=== PATIENT | female | born 1960 | race Caucasian/White ===

== ENCOUNTER 2020-10-21 10:07 | Observation (INO) | payer BC, SELFPAY ==
[2020-10-21] VITALS (10 sets, daily range): BP systolic 149–183; BP diastolic 76–97; PULSE 74–102; RESP 17–20; TEMP 36.6–37.3; O2SAT 92–98; BMI 34.3; BMI 37.5
--- NOTE | 2020-10-21 10:18 | XR_ITS ---
PROCEDURE: XR ANKLE LT 2V CLINICAL INDICATION: fall Posttraumatic pain COMPARISON: CR XR TIBIA FIBULA LT 2V from 10/21/2020 FINDINGS: There is an oblique fracture of the distal shaft of the tibia. The fracture is 8.8 cm proximal to the distal surface of the tibia. There is 9 mm lateral displacement of the distal fracture fragment and mild dorsal angulation of the distal fracture fragment. There is also an oblique fracture of the distal fibula with mild dorsal angulation and dorsal displacement of the distal fracture fragment. The proximal mid aspect of the tibia and fibula have an unremarkable appearance. Small calcific density is present at the tibial tuberosity and may be due to an ununited ossification center IMPRESSION: Distal tib fib fracture as described above Dictated by: Michael Rao MD 10/21/2020 12:43 Michael Rao MD in [place] 10/21/2020 12:43
[2020-10-21 11:00] LABS: Basophils # 0.1 K/mm3 (0-0.2); Basophils % 1.2 % (0.1-2.0); Eosinophils # 0.3 K/mm3 (0.0-0.4); Hematocrit 45.4 % (37.0-47.0); Hemoglobin 15.7 g/dL (12.2-16.2); Lymphocytes # 2.1 K/mm3 (0.7-4.5); Lymphocytes % 28.8 % (10-50); Mean Corpuscular HGB Conc 34.6 g/dL (31.8-35.4); Mean Corpuscular Hemoglobin 30.6 pg (27.0-31.2); Mean Corpuscular Volume 88.3 fl (81-99); Mean Platelet Volume 9.1 fl (7.4-10.4); Monocytes # 0.5 K/mm3 (0.1-1.0); Monocytes % 6.3 % (1.7-9.3); Neutrophils # 4.3 K/mm3 (1.8-7.8); Neutrophils % 59.7 % (37.0-80.0); Platelet Count 199 K/mm3 (142-424); Red Blood Count 5.14 M/mm3 (4.20-5.40); Red Cell Distribution Width 13.6 % (11.5-17.5); White Blood Count 7.2 K/mm3 (4.8-10.8)
[2020-10-21 11:02] LABS: Chloride 102 mmol/L (98-107)
[2020-10-21 11:03] LABS: Potassium 4.1 mmoL/L (3.5-5.1); Sodium 137 mmol/L (136-145)
[2020-10-21 11:05] LABS: Alanine Aminotransferase 60 U/L (12-78); Albumin Level 4.2 g/dl (3.5-5.0); Alkaline Phosphatase 171 U/L (38-126); Anion Gap 15.1 mEq/L (5-15); Aspartate Amino Transferase 83 U/L (14-36); Bilirubin,Total 0.6 mg/dl (0.2-1.3); Blood Urea Nitrogen 24 mg/dl (7-17); Calcium 9.6 mg/dl (8.4-10.2); Carbon Dioxide 24 mmol/L (22.0-30.0); Creatinine Clearance Estimated 67 mL/min (50-200); Estimated Glomerular Filt Rate 42 ml/min (>60); GFR (African American) 51 ML/MIN (>60); Globulin 4.1 g/dL (1.3-3.2); Glucose 231 mg/dl (74-100); Total Protein,Serum 8.3 g/dl (6.3-8.2)
--- NOTE | 2020-10-21 11:06 | HMH.EDGENADL ---
ED Disposition Clinical Impression: Fracture tibia/fibula Qualifiers: Encounter type: initial encounter Fracture type: closed Laterality: left Qualified Code(s): S82.202A - Unspecified fracture of shaft of left tibia, initial encounter for closed fracture Disposition: Admitted as Observation Condition on Discharge: Fair - Critical Care Critical Care Time: No Attestation: On 10/21/20, the high probability of a clinically significant, sudden or life threatening deterioration of the following system(s) required my full and direct attention, intervention and personal management. The time I documented below is in addition to time spent performing reported procedures but includes the following listed in this critical care notation. Medical Decision Making - Jan Inquiry Pt receiving controlled substance: Yes Jan was queried for this patient: No Reason not queried -: Emergent pt cond-no time Risks and benefits of using a controlled substance: were not discussed with pt by me Vital Signs: 10/21/20 10:08 10/21/20 10:55 10/21/20 11:32 Temperature 98.0 F Temperature Source Oral Pulse Rate [Left Radial] 89 74 87 Respiratory Rate 18 Blood Pressure [Right Arm] 168/87 H 171/94 H 183/84 H Blood Pressure Mean [Right Arm] 114 119 117 Blood Pressure Source [Right Arm] Automatic Cuff Automatic Cuff Automatic Cuff Blood Pressure Position [Right Arm] Sitting Sitting Sitting 02 Sat by Pulse Oximetry 98 97 97 Oxygen Delivery Method Room Air Room Air Room Air 10/21/20 12:08 Temperature Temperature Source Pulse Rate [Left Radial] 77 Respiratory Rate Blood Pressure [Right Arm] 172/94 H Blood Pressure Mean [Right Arm] 120 Blood Pressure Source [Right Arm] Automatic Cuff Blood Pressure Position [Right Arm] Sitting 02 Sat by Pulse Oximetry 92 L Oxygen Delivery Method Room Air - Lab Data Lab Results 10/21/20 10:27: WBC 7.2, RBC 5.14, Hgb 15.7, Hct 45.4, MCV 88.3, MCH 30.6, MCHC 34.6, RDW 13.6, Plt Count 199, MPV 9.1, Neut % (Auto) 59.7, Lymph % (Auto) 28.8, [place] % (Auto) 6.3, Eos % (Auto) 4.0, Baso % (Auto) 1.2, Neut # (Auto) 4.3, Lymph # (Auto) 2.1, [place] # (Auto) 0.5, Eos # (Auto) 0.3, Baso # (Auto) 0.1 10/21/20 10:27: Sodium 137, Potassium 4.1, Chloride 102, Carbon Dioxide 24, Anion Gap 15.1 H, BUN 24 H, Creatinine 1.30 H, Estimated Creat Clear 67, Estimated GFR 42 L, Est GFR ( Amer) 51 L, Glucose 231 H, Calcium 9.6, Total Bilirubin 0.6, AST 83 H, ALT 60, Alkaline Phosphatase 171 H, Total Protein 8.3 H, Albumin 4.2, Globulin 4.1 H, Albumin/Globulin Ratio 1.0 L Result diagrams: 10/21/20 10:27 10/21/20 10:27 Orders (Tests/Meds): ED MEDICATIONS Discontinued Medications Generic Name Dose Route Start Last Admin Trade Name Freq PRN Reason Stop Dose Admin Hydromorphone HCl 1 mg 10/21/20 11:16 10/21/20 11:43 Hydromorphone 2mg/Ml Syringe IV 10/21/20 11:17 1 mg ONCE ONE Administration Ondansetron HCl 4 mg 10/21/20 11:16 10/21/20 11:44 Ondansetron 4mg/2ml Vial IV 10/21/20 11:17 4 mg ONCE ONE Administration ORDERS Category Date Time Status Consult to Orthopedic Surgery [CONS] Stat Cons 10/21/20 11:17 Ordered Ankle XR - Left 2 Views [XR ankle LT 2V] Stat Exams 10/21/20 10:18 Taken XR tibia fibula LT 2V Stat Exams 10/21/20 10:18 Taken Covid-19 Nasal PCR ([place]) Routine Lab 10/21/20 11:50 Received - Radiology Data #1 Image(s): Tib/Fib Image Reviewed: Yes I reviewed the patient's radiology image fracture left distal tibia and fibular shafts - Physician Consults Physician Consulted: Ok Time: 11:47 Reason -: Orthopedic Eval/Care Comment/Response: Long-leg posterior splint. NPO. Admit to his service. General Adult HPI - General Chief complaint: Fall Stated complaint: AO [id number] left leg pain Time Seen by Provider: 10/21/20 11:06 Mode of Arrival: Wheelchair Limitations: No Limitations Description of Symptoms (Recalled from ER Triage Doc. by RN): c/
--- NOTE | 2020-10-21 12:28 | PC.NURSE ---
Ileana orthoglassed with assistance of
--- NOTE | 2020-10-21 13:06 | CT_ITS ---
PROCEDURE: CT ANKLE LT WO CON Including 3D volume rendering with shading Referring Doctor: Brady Euceda Patient Age:60Y CLINICAL HISTORY: injury but fracture fractures distal fibula and distal tibia COMPARISON: CR XR TIBIA FIBULA LT 2V from 10/21/2020 CR XR ANKLE LT 2V from 10/21/2020 XA XR TIBIA FIBULA LT 2V from 10/22/2020 TECHNIQUE: No IV contrast Helical axial images obtained with sagittal and coronal reformats. 7 6 CPT Subsequent 3D volume rendering with shading performed on CT workstation by ct scan special procedures technologist CT scans at the facility use one or more dose reduction, viz: automated exposure control, ma/kV adjustment per patient size (including targeted exams where dose is matched to indication, i.e. head), or iterative reconstruction technique. FINDINGS: . Displaced fracture shaft of left tibia and displaced fracture of the lateral malleus. Displaced fracture distal left tibial shaft: This slightly comminuted fracture of the distal tibial shaft 8 cm above the ankle mortise. There up to 1 cm lateral displacement of the distal fracture fragment. Mild angulation with slight medial and posterior tilt of distal fracture fragment, yielding apex of fracture directed anterior and lateral There is also a nondisplaced vertically oriented fracture of the distal most tibia-with articular extension to the ankle joint: This can be seen as a seen is a transverse fracture line on axial image 70, passing through the articular surface of the distal tibia at ankle joint-nondisplaced here. This fracture line then extends superiorly in a vertical fashion through upward exiting the cortex of the distal tibia here at the posterior tibial metaphysis-basically this becomes a posterior malleolar fracture fragment. . Fractures of the distal fibula: Long oblique fracture begins at the distal fibular shaft posteriorly and continues lateral malleolus. Comminuted of fragment seen both posterior and anterior. As well as some questionable fragments at the fibular talar articulation interosseous region likely arising from lateral cortical margin the distal tibia at the interosseous region.. The dome of the talus intact. Subtalar region unremarkable. Medial malleolus intact. There is diffuse soft tissue swelling about the ankle extending the foot as well as edema throughout inferior aspect of the lower leg. IMPRESSION: . Displaced fracture shaft of left tibia, intra-articular fracture distal tibia, displaced fracture distal fibula: 1..Acute, displaced slightly comminuted fracture of the Distal Tibial Shaft Mild angulation at fracture with near 10 mm lateral displacement of the distal tibial fracture fragment.. 2..Acute, vertically oriented fracture Distal Most Tibia, with Intra-articular Extension. Essentially nondisplaced posterior malleolar fragment. 3..Acute mild displaced fracture of the Distal Fibula . This extends from posterior cortex of distal shaft to the anterior aspect of the lateral malleolus. Mildly comminuted 4.. Also note cortical fragmentation distal most tibia anteriorly at interosseous region-where it articulates with the distal tibia, just above the ankle mortise. This feature best seen on axial images of this region. 5-. Diffuse soft tissue swelling about ankle-extending into the lower leg, as well as distally towards the foot Dictated by: Sammy Mojica MD 10/22/2020 17:58 Sammy Mojica MD in [place] 10/22/2020 17:58
--- NOTE | 2020-10-21 13:31 | PC.NURSE ---
per lab pt covid swab has not been placed on the analyzer yet, states they are waiting on the current run to get finished they will have to reboot the machine and then will place pt swab on.
--- NOTE | 2020-10-21 13:32 | HMH.ORTHHP ---
*Admission Date: 10/21/20 *Reason for consult:: 1. Fracture shaft tibia, left 2. Lateral malleolus fracture, left ankle *History of present illness: Patient is a 60-year-old female presented to the ER for management of left leg injury. She states she slipped and fell down the steps this morning around 9 AM. She says her left leg went underneath her and she felt immediate pain and noticed deformity. Following the injury she was brought to the [facility] ER where evaluation including x-rays showed a closed, displaced fracture shaft of left tibia and displaced fracture of the lateral malleus.? She was placed in a posterior splint and is being admitted for further management.? She says her pain has significantly improved following the splinting and IV Dilaudid. The pain is worse with any attempted movements of the left lower extremity.? There is no history of any distal tingling or numbness.? She is not complaining of pain anywhere else.? She says she noticed couple of superficial abrasions over the leg without active bleeding. She reports no other injuries. She denies injury to head, neck, chest, back, abdomen or pelvis. No history of any previous knee, leg or ankle problems, significant injury or surgery. 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 She is normally mobile and independent. Her medical history includes hypertension, hyperlipidemia and hypothyroidism. She is not a known diabetic. She is ex-smoker, quit smoking about 20 years ago. [facility] History I have reviewed the patient's past medical history: Yes Medical History: Reports:: Hyperlipidemia, Hypertension Denies:: Diabetes Mellitus Type 1, Diabetes Mellitus Type 2 *Have you ever received a pneumonia vaccine?: No *Have you received a flu vaccine this season?: No Other Medical History: Reports: Hypothyroidism, Osteoporosis - *Social History Smoking Status: Former smoker Substance Use Type: denies use *Occupational Status:: employed *Travel in the last 8 weeks: None Family Hx:: Non-contributory Review of Systems - Review of Systems Review of systems:: pertinent systems reviewed and negative unless documented below - Constitutional Denies body ache(s), Denies chills, Denies fever(s) - Eyes Denies change in vision - ENT Denies abnormal hearing, Denies difficulty swallowing, Denies nasal congestion - *Cardiovascular Denies chest pain, Denies shortness of breath - *Respiratory Denies chest congestion, Denies cough, Denies wheezing - *Gastrointestinal Denies abdominal pain, Denies change in bowel habits, Denies vomiting - *Musculoskeletal Denies back pain, Denies neck pain, Denies numbness, Denies radiating pain into limb, Denies tingling Comments: As per HPI - *Neurologic Denies abnormal movements, Denies seizure-like activity, Denies dizziness, Denies numbness, Denies tingling/numbness/burning sensations, Denies weakness - Endocrine Denies cold intolerance, Denies heat intolerance - Hematologic/Lymphatic Denies easy bleeding, Denies easy bruising - Allergic/Immunologic Denies GI upset with certain foods, Denies hives, Denies wheezing Meds Home Medications Medication Instructions Recorded Confirmed Type Aspirin [Lo-Dose Aspirin EC] 81 mg PO DAILY 10/21/20 10/21/20 History Benazepril HCl 5 mg PO DAILY 10/21/20 10/21/20 History Cetirizine HCl 10 mg PO DAILY 10/21/20 10/21/20 History Levothyroxine Sodium 175 mcg PO DAILY 10/21/20 10/21/20 History [Levothyroxine] Meloxicam 7.5 mg pe PO DAILY 10/21/20 10/21/20 History Metoprolol Tartrate [Lopressor 100 mg PO DAILY 10/21/20 10/21/20 History 100mg Tablet] Omeprazole [Omeprazole 20mg Tab] 20 mg PO DAILY 10/21/20 10/21/20 History Simvastatin 40 mg PO DAILY 10/21/20 10/21/20 History Triamterene/Hydrochlorothiazid 1 tab PO DAILY 10/21/20 10/21/20 History [Triamterene-Hctz 37.5-25 mg Tb] Vit D3-Vit K/Berberine/Hops 1 tab PO DAILY 10/21/20 10/21/20 History [Ostera Tablet] estradioL [Estradiol]
--- NOTE | 2020-10-21 13:37 | PC.NURSE ---
pt to rad
--- NOTE | 2020-10-21 14:00 | PC.NURSE ---
Pt returned from rad.
--- NOTE | 2020-10-21 14:06 | XR_ITS ---
PROCEDURE: XR CHEST PORTABLE Referring Doctor: Brady Euceda Patient Age:60Y CLINICAL HISTORY: Preop-history of hypertension COMPARISON: No exams were available for comparison FINDINGS: AP portable upright CXR Lungs well expanded and clear with no active disease. The cardiomediastinal silhouette and pulmonary vascularity are within normal limits. The lungs are clear without infiltrates, suspicious nodules, or pleural effusions.. No focal consolidation. Today's slightly less than optimal inspiration along with overlying breast accentuate markings at the lung bases but no significant active disease No acute bony abnormalities. IMPRESSION: . Lungs appear clear with nothing definitely acute. Dictated by: Sammy Mojica MD 10/22/2020 17:25 Sammy Mojica MD in [place] 10/22/2020 17:25
--- NOTE | 2020-10-21 14:29 | PC.NURSE ---
per lab pt covid swab has 90 mins left on the analyzer
--- NOTE | 2020-10-21 16:00 | PC.NURSE ---
Pt eating at this time.
--- NOTE | 2020-10-21 16:10 | PC.NURSE ---
REPORT RECEIVED FROM Chintan LIZAMA RN
--- NOTE | 2020-10-21 16:14 | PC.NURSE ---
report given to mara mirelesrn
--- NOTE | 2020-10-21 16:18 | ECG_ITS ---
APPROVED REPORT Exam: Resting ECG HR:84 bpm ECG Measurements Heart Rate 84 AXES KS 162 P 32 QRSd 80 QRS 25 QT 360 T 46 QTc 425 Conclusion Normal sinus rhythm Poor R wave progression Abnormal ECG Electronically signed by : Zen Franklin, 10/21/2020 17:23:56
--- NOTE | 2020-10-21 16:30 | PC.NURSE ---
PT ASSESSED AT THIS TIME. BILATERAL LUNG SOUNDS CLEAR. NO EDEMA NOTED. L LEG IN LONG LEG SPLINT. CAP REFILL OF L TOES ARE LESS THAN THREE SECS. PT STATES PAIN IN L LEG 10/10 ON VERBAL SCALE. DENIES ANY FURTHER NEEDS AT THIS TIME WILL CONTINUE TO OBSERVE.
--- NOTE | 2020-10-21 17:29 | PC.NURSE ---
RN CALLED DR. SANTANA. EXPLAINED PT PAIN 10/10 ON VERBAL SCALE. LAST GIVEN MORPHINE 4 MG @1529. PT STATES DILAUDID HELPED BETTER THAN MORPHINE. DR. SANTANA STATES TO GIVE PT PO NORCO [phone]. RN REPEATED AND VERIFIED.
--- NOTE | 2020-10-21 19:25 | PC.NURSE ---
DR LAWRENCE ON UNIT AT THIS TIME, ASSESSING PATIENT AT THIS TIME, REPORT GIVEN NO NEW ORDERS
--- NOTE | 2020-10-21 20:27 | PC.NURSE ---
DR SANTANA ALSO STATED BOLTON CATHETER MAY BE INSERTED AT THIS TIME D/T TIB/FIB FX AND DIFICULTY REPOSITIONING IN BED D/T PAIN
--- NOTE | 2020-10-21 20:27 | PC.NURSE ---
DR SANTANA WAS CALLED AT THIS TIME, PT TEARFUL AND STATES MORPHINE IS NOT HELPING PT RATING PAIN 10/10 ON PAIN SCALE, NEW ORDERS RECEIVED TO D/C MORPHINE, DILAUDID 1MG IV Q4H PRN AND TORODOL 30MG Q6H PRN PHONE ORDERS REPEATED AND VERIFIED AT THIS TIME
--- NOTE | 2020-10-21 20:50 | PC.NURSE ---
BOLTON CATHETER WAS INSERTED AT THIS TIME. PT TOLERATED PROCEDURE WELL UA COLLECTED AND SENT TO LAB
[2020-10-21 20:54] LABS: Hemoglobin A1C 7.4 % (4.0-6.0)
[2020-10-21 21:32] LABS: Microscopic, Urine URINE MICROSCOPIC (MICROSCOPIC)
[2020-10-21 21:33] LABS: Appearance,Urine CLEAR (Clear); Bilirubin,Urine Negative (Negative); Blood, Urine TRACE-I (Negative); Color,Urine YELLOW (Yellow); Glucose,Urine (UA) Negative (Negative); Ketones,Urine Negative (Negative); Leukocyte Esterase,Urine Negative (Negative); Nitrate,Urine Negative (Negative); Protein,Urine 3+ (Negative); Specific Gravity, Urine >= 1.030 (1.005-1.030); Urobilinogen,Urine 0.2 EU/dl (0.2)
[2020-10-21 21:35] LABS: Coarse Granular Casts,Urine Occasional #/lpf (0); RBC,Urine Occasional #/hpf (0-3)
--- NOTE | 2020-10-21 21:40 | PC.NURSE ---
DR SANTANA ON UNIT AT THIS TIME, REPORT GIVEN, NEW ORDERS RECEIVED FOR VANCOMYCIN BEFORE SURGERY DOSING PER PHARMACY FOR PROPHYLAXIS, CONSULT TO PRIMARY CARE DOCTOR, BLOOD SUGARS AC AND HS, AND HUMALOG SLIDING SCALE INSULIN LOW INTENSITY SCALE, VERBAL ORDER REPEATED AND VERIFIED
--- NOTE | 2020-10-21 21:43 | PC.NURSE ---
SPOKE WITH KRISTEN FROM PHARMACY VANCOMYCIN DOSING, VANCOMYCIN 2G IV X 1 DOSE AT 0700, VANC ORDER WAS REPEATED AT THIS TIME
--- NOTE | 2020-10-21 21:57 | PC.NURSE ---
radiology at bedside at this time completing chest x ray, ice provided to heel foot and leg per dr Euceda request
[2020-10-21 22:17] LABS: POC Glucose,Bedside 194 (70-110)
[2020-10-22] VITALS (17 sets, daily range): BP systolic 128–188; BP diastolic 66–140; PULSE 62–92; RESP 16–18; TEMP 36.6–43; O2SAT 91–98
--- NOTE | 2020-10-22 05:05 | PC.NURSE ---
pt is alert and oriented and able to make needs known, vss, lungs remain clear, heart rate regular, bs x 4, left foot remains casted with ice packs in place, pt has good capillary refill no edema noted, foot remains elevated, pain well controlled with pain medication, rush catheter patent, no distress noted, call light within reach will continue to monitor at this time
[2020-10-22 06:44] LABS: POC Glucose,Bedside 170 (70-110)
--- NOTE | 2020-10-22 07:15 | PC.NURSE ---
2ND IV STARTED AT THIS TIME. X1 STICK IN RAC 20G PT TOLERATED WELL.
--- NOTE | 2020-10-22 07:18 | XR_ITS ---
PROCEDURE: XR TIBIA FIBULA LT 2V CLINICAL INDICATION: IM TIBIA NAILING AND ORIF LATERAL FIBULA COMPARISON: No exams were available for comparison FINDINGS: Fluoroscopy time: 5 minutes and 25 seconds C-arm is utilized for ORIF of comminuted distal tibia and fibular fracture. Long intramedullary austen with stabilizing cortical screws are placed within the tibia and a side plate of the fibula which appears to be in good alignment on the AP view. IMPRESSION: Good alignment status post ORIF distal tib fib fracture Dictated by: Michael Rao MD 10/23/2020 12:35 Michael Rao MD in [place] 10/23/2020 12:35
--- NOTE | 2020-10-22 07:30 | PC.NURSE ---
REPORT RECEIVED FROM Boubacar APARICIO RN
--- NOTE | 2020-10-22 07:34 | PC.NURSE ---
REPORT GIVEN TO Karol LATIF RN
--- NOTE | 2020-10-22 07:40 | PC.NURSE ---
PT TAKEN TO PREOP AT THIS TIME.
--- NOTE | 2020-10-22 08:57 | HMH.ANESCL ---
[facility] Anesthesia Checklist - Patient Identification Patient Identification: Arm Band - Structural Data Admitted From: Inpatient Planned Operative Procedure/s: Left Tibial Nailing, ORIF Left Ankle Consent for Planned Operative Procedure(s) Verified: Yes Verified Documents: Surgical Consent, History and Physical - NPO Status Verified Time NPO: 00:00 - Additional verifications Anesthesia Reactions: No - Airway Assessment C-Spine Mobility Assessed: Yes (mp2) TMJ Mobility Assessed: Yes Dentition: Good Dentition - Neurological Assessment Level of Consciousness: Awake, Alert - Anesthesia Plan Anesthesia Risk discussed: Yes Anesthesia Plan: Verified ASA Class: III Anesthesia Type: MAC w/Spinal [facility] History I have reviewed the patient's past medical history: Yes Medical History: Reports:: Diabetes Mellitus Type 2, Hyperlipidemia, Hypertension, Osteoporosis Denies:: Diabetes Mellitus Type 1, MRSA *Have you ever received a pneumonia vaccine?: No *Have you received a flu vaccine this season?: Yes Other Medical History: Reports: Hypothyroidism, Osteoporosis, Thyroid Disease Anesthesia experience/problems:: nac Other Surgeries: Yes: Cholecystectomy, Hysterectomy-Total, Tubal Ligation Amputation: No Fractures: No - *Social History Last grade of school completed: Some college Smoking Status: Former smoker Alcohol Intake: never Substance Use Type: denies use *Occupational Status:: employed Housing: house Household Members: spouse *Travel in the last 8 weeks: None Family Hx:: Non-contributory
--- NOTE | 2020-10-22 10:23 | SUR.OPER ---
0907-family updated at this time
--- NOTE | 2020-10-22 11:21 | SUR.OPER ---
1117-family updated at this time
--- NOTE | 2020-10-22 13:23 | HMH.ANESI ---
[facility] Anesthesia Record Part I Intake, IV Amount: 1,600 Estimated blood loss (mL): 200 Urine output (mL): 500 Blood Pressure: 128/80 SaO2: 96 Pulse Rate: 74 Respiratory Rate: 16 Temperature: 98 F Patient is:: Drowsy, Stable Stable to PACU at:: 13:20
[2020-10-22 13:57] LABS: POC Glucose,Bedside 122 (70-110)
--- NOTE | 2020-10-22 14:00 | HMH.PHAVTE ---
[facility] Pharmacy VTE Monitoring - Patient Demographics Admission date: 10/22/20 Report Date: 10/22/20 Time: 14:00 Allergies/Adverse Reactions: Patient Allergies No Known Allergies Allergy (Verified 10/21/20 10:30) Height: 1.57 m Weight: 92.986 kg Patient Problems: Current Active Problems Fracture tibia/fibula (Acute) Fracture of tibial shaft, left, closed (Acute) Fracture of ankle, lateral malleolus, left, closed (Acute) Hypertension (Chronic) Hypothyroidism (Chronic) - VTE Risk Labs: VTE Related Lab Results Hgb 15.7 g/dL (12.2-16.2) 10/21/20 10:27 Hct 45.4 % (37.0-47.0) 10/21/20 10:27 Plt Count 199 K/mm3 (142-424) 10/21/20 10:27 BUN 24 mg/dl (7-17) H 10/21/20 10:27 Creatinine 1.30 mg/dl (0.52-1.04) H 10/21/20 10:27 Estimated Creat Clear 67 mL/min (50-200) 10/21/20 10:27 Was VTE Risk Assessment Performed: Yes VTE Score: 3 VTE Risk Level: Low Risk - Prophylaxis Types of VTE Prophylaxis: TEDS Knee High Location of Applied Device: Right Leg, Bilateral Lower Extremeties (JOSÉ ANTONIO HOSE ORDERED)
--- NOTE | 2020-10-22 14:04 | HMH.OPNOTE ---
Date of procedure: 10/22/20 Pre-op Diagnosis:: 1. Closed, comminuted and displaced fracture shaft of tibia and fibula, LEFT leg 2. Closed, comminuted and displaced fracture lateral malleolus, LEFT ankle 3. Closed, nondisplaced posterior malleolus fracture, LEFT ankle Post-op Diagnosis:: Same Procedure performed:: 1. Closed reduction and internal fixation with tibial nailing, LEFT tibia 2. Open reduction internal fixation lateral malleolus fracture, LEFT ankle 3. Percutaneous screw fixation posterior malleolus fracture, LEFT ankle Surgeon:: Brady Euceda MD Pole Setter(s):: Claudia Zaidi CROZER:: Hong Chacon Anesthesia: spinal Estimated blood loss (mL): 200 Clinical Note:: Patient is a 60-year-old female who sustained injury to her left leg and left ankle when she slipped and fell down few steps yesterday. Evaluation in the ER including x-rays and CT scan showed a closed comminuted, unstable fracture shaft of left tibia along with a displaced comminuted fracture of the lateral malleolus and a large nondisplaced posterior malleolus fractures of the left ankle. There is no history of any distal tingling or numbness. There were couple of superficial skin abrasions over the leg without active bleeding. No other injuries were noted. No history of any previous knee, leg or ankle problems, significant injury or surgery. 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 She is normally mobile and independent. Her medical history includes hypertension, hyperlipidemia and hypothyroidism. She is not a known diabetic. She is ex-smoker, quit smoking about 20 years ago. The patient was splinted and admitted for surgical management. Please refer to my H&P note for full details. Operative findings:: A displaced, comminuted, unstable spiral fracture of the shaft of the left tibia at middle and lower third junction. Also there is comminuted, displaced spiral fracture of the lateral malleolus and a nondisplaced large posterior malleolar fracture. The inferior tibiofibular syndesmosis noted to be intact with stable and congruent ankle mortise. The tibia was reduced and fixed in a stable fashion with intramedullary nailing. The lateral malleolus fracture was reduced and chemically and fixed with plate and screws. The posterior malleolar fracture fixed with an anteroposterior cannulated cancellous screw. Moderate soft tissue swelling was noted over the distal third of the leg and around the ankle. Operative note:: Prior to surgery the patient was met in the preoperative holding area and positively identified. A physical examination was performed and documented. The operative site was marked and initialed by me. The consent form was reviewed and signed. Given the fracture pattern, displacement and shortening, I have recommended a closed/open reduction and internal fixation of the tibial shaft fracture as well as open reduction internal fixation of the lateral malleolus fracture. I have discussed details of the closed/open reduction and intramedullary nailing for tibial shaft fracture and plating of the lateral malleolus. Following a detailed discussion she wished to proceed with surgery. I have discussed the details of the proposed surgical procedures, risks and benefits and alternatives. We have outlined where the incisions will be on the skin. Given the small abrasion over the tibial tuberosity area, I am planning a suprapatellar tibial nailing. Risks of surgery discussed include but are not limited to- infection, bleeding, injury to nerves and blood vessels, compartment syndrome, fat embolism, intra-articular knee injury, incisional scar (cosmesis), DVT/PE, malunion, nonunion/delayed union, refracture, knee/ankle stiffness and pain, knee and ankle arthritis, CRPS (complex regional pain syndrome- pain, sensory and temperature changes, swelling and stiffness), painful/prominent hardware, loss of fixation/hardware failure, incomplete relief of pain, incomplete return of function, an
--- NOTE | 2020-10-22 15:04 | HMH.PHAVTE ---
[facility] Pharmacy VTE Monitoring - Patient Demographics Admission date: 10/22/20 Report Date: 10/22/20 Time: 12:00 Allergies/Adverse Reactions: Patient Allergies No Known Allergies Allergy (Verified 10/21/20 10:30) Height: 1.57 m Weight: 92.986 kg Patient Problems: Current Active Problems Fracture tibia/fibula (Acute) Fracture of tibial shaft, left, closed (Acute) Fracture of ankle, lateral malleolus, left, closed (Acute) Hypertension (Chronic) Hypothyroidism (Chronic) - VTE Risk Labs: VTE Related Lab Results Hgb 15.7 g/dL (12.2-16.2) 10/21/20 10:27 Hct 45.4 % (37.0-47.0) 10/21/20 10:27 Plt Count 199 K/mm3 (142-424) 10/21/20 10:27 BUN 24 mg/dl (7-17) H 10/21/20 10:27 Creatinine 1.30 mg/dl (0.52-1.04) H 10/21/20 10:27 Estimated Creat Clear 67 mL/min (50-200) 10/21/20 10:27 Was VTE Risk Assessment Performed: Yes VTE Score: 3 VTE Risk Level: Low Risk - Prophylaxis Types of VTE Prophylaxis: IPCS Thigh High Location of Applied Device: Right Leg, Bilateral Lower Extremeties (ICDS ORDERES)
--- NOTE | 2020-10-22 15:10 | HMH.ANESII ---
[facility] Anesthesia Record Part II Discharge Time: 13:40 Destination: Obstetric PACU nurse assessment reviewed?: Yes Patient Condition:: Good Anesthesia Complications:: None Swallowing reflex intact?: Yes Cyanosis?: No Blood Pressure: 145/70 Pulse Rate: 62 Temperature: 98.3 F Mental Status: Alert & Oriented Pain level:: 0 Nausea and/or vomitting:: None Intake, IV Amount: 0
[2020-10-22 16:25] LABS: POC Glucose,Bedside 160 (70-110)
--- NOTE | 2020-10-22 19:30 | PC.NURSE ---
REPORT GIVEN Carmen LR RN.
[2020-10-22 20:34] LABS: POC Glucose,Bedside 138 (70-110)
--- NOTE | 2020-10-22 21:05 | PC.NURSE ---
O2 2L/NC APPLIED AT THIS TIME, PT DROWSY FROM PAIN MEDICATION. PT USING INCENTIVE SPIROMETER AT THIS TIME. PROPER USE
[2020-10-23] VITALS (8 sets, daily range): BP systolic 127–162; BP diastolic 50–76; PULSE 90–102; RESP 16–18; TEMP 36.9–37.4; O2SAT 95–100
--- NOTE | 2020-10-23 04:40 | PC.NURSE ---
PT HAS RESTED INTERMITTENTLY THIS SHIFT, MEDICATED EVERY 4 HOURS PER EMAR. PT A&O X 4. VSS. ANXIOUS AND TEARFUL AT TIMES, PT UNSURE WHY. REASSURANCE GIVEN. PT OFF O2 AT THIS TIME. LUNGS CTAB. HEART RATE REGULAR. BOWEL SOUNDS ACTIVE X 4 QUADS. BOLTON CATH PATENT, CLEAR YELLOW URINE NOTED. LEFT LEG ELEVATED. DRESSING C/D/I. PT ABLE TO MOVE TOES, STATES LEG FEELS VERY HEAVY. PULSES PALPABLE, WARM TO TOUCH. CAP REFILL LESS THAN 3 SECONDS, NO EDEMA NOTED. POLAR PACK AND ICE PACKS REFILLED AT THIS TIME. CALL LIGHT WITHIN REACH. NO NEEDS AT THIS TIME. WILL CONTINUE TO MONITOR
[2020-10-23 06:38] LABS: POC Glucose,Bedside 147 (70-110)
[2020-10-23 07:03] LABS: Basophils # 0.1 K/mm3 (0-0.2); Basophils % 0.5 % (0.1-2.0); Eosinophils # 0.2 K/mm3 (0.0-0.4); Eosinophils % 2.7 % (0.1-12.0); Hematocrit 34.4 % (37.0-47.0); Hemoglobin 11.5 g/dL (12.2-16.2); Lymphocytes # 1.6 K/mm3 (0.7-4.5); Lymphocytes % 18.6 % (10-50); Mean Corpuscular HGB Conc 33.3 g/dL (31.8-35.4); Mean Corpuscular Hemoglobin 29.3 pg (27.0-31.2); Mean Corpuscular Volume 88.1 fl (81-99); Mean Platelet Volume 8.5 fl (7.4-10.4); Monocytes # 0.6 K/mm3 (0.1-1.0); Neutrophils # 6.3 K/mm3 (1.8-7.8); Neutrophils % 71.1 % (37.0-80.0); Platelet Count 150 K/mm3 (142-424); Red Blood Count 3.91 M/mm3 (4.20-5.40); Red Cell Distribution Width 13.2 % (11.5-17.5); White Blood Count 8.8 K/mm3 (4.8-10.8)
[2020-10-23 07:08] LABS: Chloride 103 mmol/L (98-107); Sodium 136 mmol/L (136-145)
[2020-10-23 07:09] LABS: Potassium 4.3 mmoL/L (3.5-5.1)
[2020-10-23 07:12] LABS: Anion Gap 8.3 mEq/L (5-15); Blood Urea Nitrogen 22 mg/dl (7-17); Carbon Dioxide 29 mmol/L (22.0-30.0); Creatinine Clearance Estimated 59 mL/min (50-200); Estimated Glomerular Filt Rate 36 ml/min (>60); GFR (African American) 43 ML/MIN (>60); Glucose 158 mg/dl (74-100)
[2020-10-23 07:35] LABS: Calcium 8.4 mg/dl (8.4-10.2)
--- NOTE | 2020-10-23 08:00 | PC.NURSE ---
PT ASSESSED AT THIS TIME. BILATERAL LUNG SOUNDS CLEAR. BOWEL SOUNDS HYPOACTIVE X4 QUADS. PT STATES SHE HAS BEEN PASSING SOME GAS. L LEG HAS SURGICAL DRESSING IN PLACE AND IS C/D/I. PT CAP REFILL IN L TOES IS LESS THAN 3 SECS. PT IS ABLE TO BEND KNEE AND WIGGLE TOES ON L FOOT. NO EDEMA NOTED. PAIN IS 7/10 ON VERBAL SCALE AND WILL MEDICATE PER EMAR AT THIS TIME. L LEG ELEVATED ON PILLOWS X4 ICE PACKS, AND POLAR PACK IN PLACE. ICE PACKS REFILLED AT THIS TIME. WILL CONTINUE TO OBSERVE.
--- NOTE | 2020-10-23 08:42 | PC.NURSE ---
[facility] AT BEDSIDE AT THIS TIME.
--- NOTE | 2020-10-23 08:49 | PC.NURSE ---
[facility] DAY TO NURSES STATION AT THIS TIME STATING THAT PT IS CRYING IN PAIN. RN CALLED DR. SANTANA AT THIS TIME. REPORT GIVEN. STATES TO CHANGE NORCO 5/325 TO PERCOCET 5/325MG Q4H PRN PO. STATES TO GIVE PT 0.5MG OF DILAUDID IV PRN Q4H PRN R/T MAKING PT DROWSY AND NEEDS PHYSICAL THERAPY/ OT EVALUATION. ORDERS REPEATED AND VERIFIED.
--- NOTE | 2020-10-23 09:01 | PC.NURSE ---
[facility] ADMINISTERED PAIN MEDICATION DR. SANTANA ORDERED.
--- NOTE | 2020-10-23 09:30 | PC.NURSE ---
PT AMBULATED TO CHAIR AT THIS TIME WITH ROLLING WALKER AND X1 ASSIST. PT TOLERATED WELL. L LEG ELEVATED AND ICED.
--- NOTE | 2020-10-23 09:45 | PC.NURSE ---
INDWELLING CATHETER REMOVED AT THIS TIME. PT TOLERATED WELL. 400 ML OF CLEAR URINE NOTED IN BAG.
--- NOTE | 2020-10-23 11:02 | HMH.PTEV ---
Physical Therapy Evaluation Rehab PT IP Evaluation Start: 10/22/20 13:57 Freq: ONCE Status: Active Protocol: Document 10/23/20 10:47 NORMALUÍS (Rec: 10/23/20 11:00 JENNIFER [id number]) Subjective/History History History THis is the initial IP PT evaluation for Simona Laird. Pt is a 60 y/o female admitted to [facility] s/p fall at home w/ fx tib/fib requiring ORIF Subjective Subjective Pt reports severe stiffness in L knee Rehab PT IP Eval Objective Appearance Patient Behavior Appropriate,Cooperative, Fearful Patient Orientation Person,Place,Time,Situation Difficulty following instructions none Speech Pattern Clear,Appropriate Ambulation Patient Able to Ambulate Yes Ambulation Observation IP General Gait Pattern Observation Decrease Weight Bear (L) Ambulation Distance (feet) 35 Ambulation Assistive Device Rolling Walker Ambulation Ability Supervision/Stand by,Contact Guard/Hand Hold Balance Ability to Arise Able, uses arms to help Sitting Balance Steady, safe Standing Balance Unsteady Dynamic Sitting Balance Ability Good Dynamic Standing Balance Ability Poor Transfers Bed Transfer Ability Supervision/Stand by,Contact Guard/Hand Hold Chair Transfer Ability Supervision/Stand by,Contact Guard/Hand Hold Sit to Stand Bed Transfer Ability Supervision/Stand by,Contact Guard/Hand Hold Sit to Stand Chair Transfer Ability Supervision/Stand by,Contact Guard/Hand Hold ROM LLE PT ROM Status ABN Abnormal ROM Comment casted ankle MMT LLE PT MMT ABN Abnormal MMT Grade unable to test L ankle due to cast and orthopedic precautions Rehab PT IP prob,goals,plan Problems Date of Evaluation: 10/23/20 PT IP Problems Transfers,Gait,Balance,Self care,Safety Rehab Potential Rehab Potential Fair Equipment Needs Assistive Devices Rolling / Wheeled Walker Plan PT Intervention Plan Transfers,Gait,Therapeutic Exercise PT Plan Frequency BID Duration LOS Discharge Goals Bed Transfer Ability Contact Guard/Hand Hold Sit to Stand Chair Transfer Ability Supervision/Stand by Ambulation Assistive Device Rolli
[2020-10-23 11:21] LABS: POC Glucose,Bedside 204 (70-110)
--- NOTE | 2020-10-23 11:48 | HMH.OTEV ---
OT Inpatient Evaluation Rehab OT IP Evaluation Start: 10/22/20 13:57 Freq: ONCE Status: Complete Protocol: Document 10/23/20 11:37 KYLIESATISH (Rec: 10/23/20 11:48 FRANKIE [id number]) Rehab OT IP Assessment Subjective History Patient is a 60-year-old female presented to the ER for management of left leg injury . She states she slipped and fell down the steps this morning around 9 AM. She says her left leg went underneath her and she felt immediate pain and noticed deformity. Following the injury she was brought to the [facility] ER where evaluation including x-rays showed a closed, displaced fracture shaft of left tibia and displaced fracture of the lateral malleus.? She was placed in a posterior splint and is being admitted for further management.? She says her pain has significantly improved following the splinting and IV Dilaudid. The pain is worse with any attempted movements of the left lower extremity.? There is no history of any distal tingling or numbness.? She is not complaining of pain anywhere else.? She says she noticed couple of superficial abrasions over the leg without active bleeding. She reports no other injuries. She denies injury to head, neck, chest, back, abdomen or pelvis. No history of any previous knee, leg or ankle problems, significant injury or surgery. 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 She is normally mobile and independent. Her medical history includes hypertension, hyperlipidemia and hypothyroidism. She is not a known diabetic. She is
--- NOTE | 2020-10-23 13:14 | SW/DCPLANNER ---
Addendum entered by Salma Eric 10/24/20 13:51: ORDERED PATIENT A KNEE SCOOTER FROM [facility] ......I HAVE ASKED [facility] IF THEY WILL DELIVER IT TO THE HOME... Original Note: SAW THIS PATIENT TODAY AFTER GETTING A REFERRAL FOR DISCHARGE PLANNING: PATIENT WAS TEARFUL WHEN I ENTERED THE ROOM, SHE STATED HER PAIN MEDS HAS NOT HELPED AND HER LEG HURTS REALLY BAD... SHE RESIDES AT HOME AND HAS BEEN INDEPENDENT WITH ALL OF HER CARE NEEDS...SHE HAD A FALL THAT RESULTED HER FRACTURE AND HER PLAN IS TO RETURN HOME WITH SOME HELP, SHE STATED HER CAN BE WITH HER SOME AND SHE SAID HER MOTHER ALSO WILL HELP.. I HAVE SHARED WITH HER NURSE REGARDING HER PAIN AND WAS GOING TO CONTACT DOCTOR.. PATIENT WILL EITHER NEED A KNEE SCOOTER OR WALKER WHEN READY FOR DISCHARGE.. HOME HEALTH MAY ALSO BE NECESSARY... WILL FOLLOW UP WITH DR SANTANA TO SEE IF HE WANTS HOME HEALTH THIS SOON...
[2020-10-23 16:25] LABS: POC Glucose,Bedside 154 (70-110)
--- NOTE | 2020-10-23 16:58 | HMH.ORTHPN ---
Subjective Date: 10/23/20 Time: 16:00 Principal diagnosis: 1. Fracture shaft tibia, left 2. Ankle fracture, left Interval history: Patient is status post ORIF left ankle and intramedullary nailing left tibia, postop day 1.? Patient is doing well and reports no problems.? She says her pain is well controlled with medication.? No history of any nausea or vomiting and says she is eating and drinking well.? No history of any fevers, chills or rigors.? Patient says says she has mobilized non-weight bearing on the left lower extremity with the help of walker under physical therapy supervision. PN: Obj Ex Vital signs: Temp Pulse Resp BP Pulse Ox 98.5 F 92 H 16 127/70 95 10/23/20 12:00 10/23/20 12:00 10/23/20 12:00 10/23/20 12:00 10/23/20 12:00 Narrative: Laboratory Results - last 24 hr 10/22/20 20:27: POC Glucose 138 H 10/23/20 06:29: POC Glucose 147 H 10/23/20 06:30: WBC 8.8, RBC 3.91 L, Hgb 11.5 L, Hct 34.4 L, MCV 88.1, MCH 29.3, MCHC 33.3, RDW 13.2, Plt Count 150, MPV 8.5, Neut % (Auto) 71.1, Lymph % (Auto) 18.6, [place] % (Auto) 7.0, Eos % (Auto) 2.7, Baso % (Auto) 0.5, Neut # (Auto) 6.3, Lymph # (Auto) 1.6, [place] # (Auto) 0.6, Eos # (Auto) 0.2, Baso # (Auto) 0.1 10/23/20 06:30: Sodium 136, Potassium 4.3, Chloride 103, Carbon Dioxide 29 D, Anion Gap 8.3, BUN 22 H, Creatinine 1.50 H, Estimated Creat Clear 59, Estimated GFR 36 L, Est GFR ( Amer) 43 L, Glucose 158 H, Calcium 8.4 D 10/23/20 10:55: POC Glucose 204 H 10/23/20 16:05: POC Glucose 154 H Exam General appearance: alert, active, awake, no acute distress Cardiovascular: regular rate & rhythm, normal peripheral pulses Respiratory: No respiratory distress noted, speaks in full sentences ABD: soft and non-tender Neuro: alert, awake, oriented x 3 Psych: Appropriate mood and affect On examination of the left lower extremity, the surgical dressings and short-leg posterior splint are in place and is fitting well.? No soakage or strikethrough noted. Patient demonstrates good range of active and passive toe movements.? Capillary refill is brisk.? Sensation intact to light touch throughout. No stretch pain or other signs of compartment syndrome are noted. - Urinary Catheter Management Chambers Cath placed during this visit: no Progress Note: A&P (1) Fracture of tibial shaft, left, closed Status: Acute (2) Fracture of ankle, lateral malleolus, left, closed Status: Acute (3) Hypertension Status: Chronic (4) Hypothyroidism Status: Chronic Assessment and Plan for All Diagnoses:: I have again reviewed the surgical findings and procedure performed with the patient and her .? Overall she is doing well and the pain is well controlled with as needed medication.? Encouraged patient to continue elevation of the left lower extremity and actively mobilize the toes. Continue elevation, regular icing, non-weight bearing mobilization and as needed pain medication. Patient is undiagnosed diabetic and also had elevated blood pressure yesterday. The blood sugar and blood pressure appear to be stable today. She is awaiting medical consultation by Dr. Ospina. Plan is to discharge home tomorrow if appropriate from a medical standpoint and is cleared for discharge by the physical therapy.
--- NOTE | 2020-10-23 19:03 | HMH.ACPN2 ---
Internal Medicine - PN: Subj *Date: 10/23/20 *Time: 19:03 Interval history: I was called this afternoon about consult that was placed on 10/22 at 1 am. For some unknown reason, MD hvac commercial salesperson yesterday was not notified of consult. Patient was admitted with a left tib/fib fracture and had ORIF completed yesterday. Her blood sugar was elevated thus the reason for the consult. Patient states her blood sugar was last checked in at her primary MD's office and it was normal at that time. Patient has been given a small amount of sliding scale insulin since surgery yesterday. HgA1c was 7.4. Patient denies excessive thirst and urination and has had no weight changes. Exam Vital signs and Labs for Last 24 Hours: Temp Pulse Resp BP Pulse Ox 98.6 F 90 16 128/71 98 10/23/20 17:25 10/23/20 17:25 10/23/20 17:25 10/23/20 17:25 10/23/20 17:25 Laboratory Results - last 24 hr 10/22/20 20:27: POC Glucose 138 H 10/23/20 06:29: POC Glucose 147 H 10/23/20 06:30: WBC 8.8, RBC 3.91 L, Hgb 11.5 L, Hct 34.4 L, MCV 88.1, MCH 29.3, MCHC 33.3, RDW 13.2, Plt Count 150, MPV 8.5, Neut % (Auto) 71.1, Lymph % (Auto) 18.6, [place] % (Auto) 7.0, Eos % (Auto) 2.7, Baso % (Auto) 0.5, Neut # (Auto) 6.3, Lymph # (Auto) 1.6, [place] # (Auto) 0.6, Eos # (Auto) 0.2, Baso # (Auto) 0.1 10/23/20 06:30: Sodium 136, Potassium 4.3, Chloride 103, Carbon Dioxide 29 D, Anion Gap 8.3, BUN 22 H, Creatinine 1.50 H, Estimated Creat Clear 59, Estimated GFR 36 L, Est GFR ( Amer) 43 L, Glucose 158 H, Calcium 8.4 D 10/23/20 10:55: POC Glucose 204 H 10/23/20 16:05: POC Glucose 154 H Vital Signs - 24 hr 10/22/20 20:35 10/23/20 00:00 10/23/20 04:20 Temperature 99.2 F 98.8 F 99.4 F Pulse Rate [Left Radial] 92 H 90 100 H Respiratory Rate 18 18 18 Blood Pressure [Right Arm] 136/68 152/69 H 149/50 H 02 Sat by Pulse Oximetry 95 100 97 10/23/20 08:00 10/23/20 09:00 10/23/20 09:45 Temperature 99.0 F 99.0 F 98.5 F Pulse Rate [Left Radial] 102 H Respiratory Rate 18 Blood Pressure [Right Arm] 133/68 02 Sat by Pulse Oximetry 95 10/23/20 12:00 10/23/20 17:25 Temperature 98.5 F 98.6 F Pulse Rate [Left Radial] 92 H 90 Respiratory Rate 16 16 Blood Pressure [Right Arm] 127/70 128/71 02 Sat by Pulse Oximetry 95 98 I & O for Last 24 hours: Intake & Output 10/20/20 10/21/20 10/22/20 10/23/20 23:59 23:59 23:59 23:59 Intake Total 480 / 480 2080 / 2080 840 / 840 Output Total 600 / 600 2650 / 2650 Balance 480 / 480 1480 / 1480 -1810 / -1810 Weight 205 lb - Constitutional no acute distress - *Routine HEENT Exam Head: Present: normocephalic Eye: Present: EOMI, PERRL ENT: Present: mucous membranes moist - *Routine Neck Exam Present: supple. Absent: lymphadenopathy - *Routine Respiratory Exam Present: CTA bilaterally - *Routine Cardiovascular Exam Present: RRR - *Routine Abdominal Exam Present: soft, normoactive bowel sounds. Absent: tenderness - *Routine Extremities Exam Comments: Surgical dressing, lynne wrap and cold packs on left leg - *Routine Skin Exam Present: warm - *Routine Neurological Exam Present: alert, oriented X3 Assessment and Plan (1) Fracture of tibial shaft, left, closed Status: Acute Category: Medical Code(s): S82.202A - Unspecified fracture of shaft of left tibia, initial encounter for closed fracture (2) Fracture of ankle, lateral malleolus, left, closed Status: Acute Category: Medical Code(s): S82.62XA - Displaced fracture of lateral malleolus of left fibula, initial encounter for closed fracture (3) Hypertension Status: Chronic Category: Medical Code(s): I10 - Essential (primary) hypertension (4) Hypothyroidism Status: Chronic Category: Medical Code(s): E03.9 - Hypothyroidism, unspecified (5) Diabetes mellitus Status: Acute Qualifiers: Diabetes mellitus type: type 2 Diabetes mellitus fpc insulin use: without fpc use Diabetes mellitus co
--- NOTE | 2020-10-23 19:10 | PC.NURSE ---
Report given to Viktor Ring RN,
[2020-10-23 22:49] LABS: POC Glucose,Bedside 204 (70-110)
[2020-10-24] VITALS: BP 142/72; PULSE 86; RESP 16; TEMP 36.8; O2SAT 96
--- NOTE | 2020-10-24 03:53 | PC.NURSE ---
Pt has slept in intervals this shift, Pt A&O x4, BLT lungs CTA, Bowel sounds present in all 4 quadrants, IV infusing well, Pt up to the bathroom with x1 assistance, LT leg dressing CDI, Polar pack and ice packs in place, Pt medicated for pain per MAR. Pt denies headache, N/V, or SOA
[2020-10-24 04:00] VITALS: BP 145/71; PULSE 103; RESP 18; TEMP 36.8; O2SAT 100
[2020-10-24 06:10] LABS: POC Glucose,Bedside 152 (70-110)
[2020-10-24 07:48] VITALS: BP 136/61; PULSE 102; RESP 20; TEMP 36.9; O2SAT 95
--- NOTE | 2020-10-24 08:20 | PC.NURSE ---
Dietitian in room speaking with pt.
[2020-10-24 08:30] VITALS: O2SAT 95
--- NOTE | 2020-10-24 08:56 | PC.NURSE ---
Salma Oviedo Care management in room speaking with pt.
--- NOTE | 2020-10-24 09:05 | PC.NURSE ---
Dr. Euceda in room speaking with pt.
[2020-10-24 09:25] VITALS: BMI 37.7
--- NOTE | 2020-10-24 09:26 | HMH.ORTHPN ---
Subjective Date: 10/24/20 Time: 09:00 Principal diagnosis: 1. Fracture shaft tibia, left 2. Ankle fracture, left Interval history: Patient is status post ORIF left ankle and intramedullary nailing left tibia, postop day 2. Patient is doing well and reports no problems. She says her pain is well controlled with as needed pain medication. No history of any nausea or vomiting and says she is eating and drinking well. No history of any fevers, chills or rigors. Patient says says she is mobilizing non-weight bearing on the left lower extremity with the help of walker under physical therapy supervision. She was seen by Dr. Ospina yesterday and he has recommended starting her on Metformin for diabetes. PN: Obj Ex Vital signs: Temp Pulse Resp BP Pulse Ox 98.4 F 102 H 20 136/61 95 10/24/20 07:48 10/24/20 07:48 10/24/20 07:48 10/24/20 07:48 10/24/20 08:30 Narrative: Laboratory Results - last 24 hr 10/23/20 16:05: POC Glucose 154 H 10/23/20 21:00: POC Glucose 204 H 10/24/20 05:44: POC Glucose 152 H 10/24/20 11:12: POC Glucose 172 H Exam General appearance: alert, active, awake, no acute distress Cardiovascular: regular rate & rhythm, normal peripheral pulses Respiratory: No respiratory distress noted, speaks in full sentences ABD: soft and non-tender Neuro: alert, awake, oriented x 3 Psych: Appropriate mood and affect On examination of the left lower extremity, the surgical dressings and short-leg posterior splint are in place and is fitting well. No soakage or strikethrough noted. Patient demonstrates good range of active and passive toe movements. Capillary refill is brisk. Sensation intact to light touch throughout. No stretch pain or other signs of compartment syndrome are noted. - Urinary Catheter Management Chambers Cath placed during this visit: no Progress Note: A&P (1) Fracture of tibial shaft, left, closed Status: Acute (2) Fracture of ankle, lateral malleolus, left, closed Status: Acute (3) Hypertension Status: Chronic (4) Hypothyroidism Status: Chronic Assessment and Plan for All Diagnoses:: I have reviewed the findings and progress with the patient. She is doing well and her pain is well controlled with as needed medication. Patient was seen by Dr. Ospina yesterday and he has recommended discharging her on oral Metformin for diabetes mellitus and to follow-up with her primary care physician in few weeks time. Appreciate the recommendations. I have encouraged patient to continue elevation of the left lower extremity and actively mobilize the toes. Continue elevation, regular icing, non-weight bearing mobilization and as needed pain medication. Advised her to continue knee range of motion strengthening exercises. Patient is for discharge home today, self-care; follow-up with me as an outpatient in 1 week's time.
--- NOTE | 2020-10-24 09:26 | HMH.DCSUM ---
General - General Admission date:: 10/21/20 Discharge date: 10/24/20 HPI HPI: Patient is a 60-year-old female presented to the ER for management of left leg injury. She states she slipped and fell down the steps this morning around 9 AM. She says her left leg went underneath her and she felt immediate pain and noticed deformity. Following the injury she was brought to the [facility] ER where evaluation including x-rays showed a closed, displaced fracture shaft of left tibia and displaced fracture of the lateral malleus. She was placed in a posterior splint and is being admitted for further management. She says her pain has significantly improved following the splinting and IV Dilaudid. The pain is worse with any attempted movements of the left lower extremity. There is no history of any distal tingling or numbness. She is not complaining of pain anywhere else. She says she noticed couple of superficial abrasions over the leg without active bleeding. She reports no other injuries. She denies injury to head, neck, chest, back, abdomen or pelvis. No history of any previous knee, leg or ankle problems, significant injury or surgery. 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 She is normally mobile and independent. Her medical history includes hypertension, hyperlipidemia and hypothyroidism. She is not a known diabetic. She is ex-smoker, quit smoking about 20 years ago. Hospital Course Hospital Course: Patient underwent an uncomplicated left tibial nailing and ORIF of the left ankle on 10/22/2020. Following surgery patient progressed well without any complications. She progressed rapidly with physical therapy and was able to mobilize using crutches. Her pain is well controlled with as needed oral pain medication. Following surgery patient was placed in a short leg splint to immobilize the ankle. No signs of any compartment syndrome were noted. Her neurovascular status in the left lower extremity is intact. Pedal pulses 2+ bilaterally and fully sensate distally. No clinical evidence of DVT noted. During this admission patient was noted to be diabetic which was previously undiagnosed. She was seen by Dr. Ospina for medical consultation and he has recommended that the patient be discharged on Metformin 500 mg daily and to follow-up with her primary care physician in a few weeks time for further management. On the day of discharge, the patient has been stable. Patient's vital signs have been stable throughout and she is afebrile at the time of discharge. She is being discharged home with self-care/family. Condition at discharge: improved and stable. Objective Vital signs: Temp Pulse Resp BP Pulse Ox 98.4 F 102 H 20 136/61 95 10/24/20 07:48 10/24/20 07:48 10/24/20 07:48 10/24/20 07:48 10/24/20 08:30 no acute distress, obese - *Routine HEENT Exam Head: Present: normocephalic Eye: Present: EOMI, PERRL ENT: Present: mucous membranes moist - *Routine Neck Exam Present: supple, full ROM - *Routine Respiratory Exam Present: CTA bilaterally - *Routine Cardiovascular Exam Present: RRR - *Routine Abdominal Exam Present: soft, normoactive bowel sounds. Absent: tenderness - *Routine Extremities Exam Comments: On examination of the left lower extremity, the surgical dressings and short-leg posterior splint are in place and is fitting well. No soakage or strikethrough noted. Patient demonstrates good range of active and passive toe movements. Capillary refill is brisk. Sensation intact to light touch throughout. No stretch pain or other signs of compartment syndrome are noted. - *Routine Skin Exam Present: warm. Absent: rash - *Routine Neurological Exam Present: alert, oriented X3, moving all extremities - Routine Psychiatric Exam Present: normal affect, cooperative, good insight Results Labs on day of discharge: Labs from last 24 hours 10/24/20 10/23/20 10/23/20 05:44 21:00 16:
--- NOTE | 2020-10-24 09:55 | PC.NURSE ---
Physical therapy in room
[2020-10-24 11:22] LABS: POC Glucose,Bedside 172 (70-110)
[2020-10-24 12:00] VITALS: BP 140/77; PULSE 89; RESP 20; TEMP 36.7; O2SAT 95
--- NOTE | 2020-10-24 13:10 | PC.NURSE ---
Discharge education provided. questions encouraged and answered. Pt and spouse v/u. Discharge papers signed by pt. and this nurse.
--- NOTE | 2020-10-24 13:35 | PC.NURSE ---
Pt. left unit via wheelchair, accompanied by staff and spouse.
== END 2020-10-24 13:35 | disposition home or self-care (01) ==
LOC: ER 11:48 → 2ND 12:09 → OB 17:14
PROVIDERS: Admitting Provider Orthopaedic Surgery; Emergency Provider Emergency Medicine; PCP Pediatrics; Visit Provider Orthopaedic Surgery
PROC: (CPT 27814; principal; 2020-10-22 08:00)
DX: S82.242A Displaced spiral fracture of shaft of left tibia, initial encounter for closed fracture (principal); S82.842A Displaced bimalleolar fracture of left lower leg, initial encounter for closed fracture; S82.62XA Displaced fracture of lateral malleolus of left fibula, initial encounter for closed fracture; W10.9XXA Fall (on) (from) unspecified stairs and steps, initial encounter; E03.9 Hypothyroidism, unspecified; E11.9 Type 2 diabetes mellitus without complications; I10 Essential (primary) hypertension; Z79.890 Hormone replacement therapy
CPT/HCPCS: 27814; 27759; 36415; 71045; 73590; 73600; 73700; 80048; 80053; 81001; 82962; 83036; 85025; 93005; 96374; 96375; 97110; 97116; 97161; 97165; 97535; 99282; C1713; C1769; C1776; G0378; J2405; J3370; U0003

== ENCOUNTER → 2020-11-08 11:36 | Outpatient (CLI) | payer BC, SELFPAY ==
--- NOTE | 2020-11-08 11:42 | XR_ITS ---
PROCEDURE: XR TIBIA FIBULA LT 2V CLINICAL INDICATION: sp IM nailing LT tibia, dos 10/22/20 follow-up surgery COMPARISON: CR XR TIBIA FIBULA LT 2V from 10/21/2020 FINDINGS: Status post ORIF distal tib fib fracture with with intramedullary austen within the tibia with good alignment. Lateral bone plate is present at the distal fibula with good alignment. There is an overlying cast in place. IMPRESSION: Good alignment status post ORIF Dictated by: Michael Rao MD 11/08/2020 17:03 Michael Rao MD in [place] 11/08/2020 17:05
--- NOTE | 2020-11-08 11:42 | XR_ITS ---
PROCEDURE: XR ANKLE LT MIN 3V CLINICAL INDICATION: sp ORIF LT ankle, dos 10/22/20; cast applied COMPARISON: CR XR ANKLE LT 2V from 10/21/2020 FINDINGS: Good alignment status post ORIF distal tib fib fracture. Intramedullary austen is present in the tibia and lateral bone plate of the fibula. There is a cast in place. IMPRESSION: Good alignment status post ORIF distal tib fib fractures Dictated by: Michael Rao MD 11/08/2020 17:06 Michael Rao MD in [place] 11/08/2020 17:06
== END ==
PROVIDERS: PCP Pediatrics; Visit Provider Orthopaedic Surgery
DX: Z09 Encounter for follow-up examination after completed treatment for conditions other than malignant neoplasm (principal); S82.202D Unspecified fracture of shaft of left tibia, subsequent encounter for closed fracture with routine healing; S82.62XD Displaced fracture of lateral malleolus of left fibula, subsequent encounter for closed fracture with routine healing
CPT/HCPCS: 73590; 73610

== ENCOUNTER → 2020-11-24 14:45 | Outpatient (CLI) | payer BC, SELFPAY | PROVIDERS: PCP Pediatrics; Visit Provider Family Medicine | DX: Z71.3 Dietary counseling and surveillance (principal); E11.9 Type 2 diabetes mellitus without complications | CPT/HCPCS: 97802 ==

== ENCOUNTER → 2020-12-06 12:18 | Outpatient (CLI) | payer BC, SELFPAY ==
--- NOTE | 2020-12-06 12:23 | XR_ITS ---
PROCEDURE: XR TIBIA FIBULA LT 2V CLINICAL INDICATION: sp LT tibia nailing, sx 10/22/20 COMPARISON: CR XR TIBIA FIBULA LT 2V from 10/21/2020 CR XR TIBIA FIBULA LT 2V from 11/08/2020 CR XR ANKLE LT MIN 3V from 12/06/2020 FINDINGS: Status post ORIF distal tib fib with an intramedullary tibial austen and lateral distal fibular bone plate. There is good alignment. There is developing callus formation at the tibial fracture site. The cast has been removed. Fracture line of the fibula is once again noted. No hardware malfunction apparent. IMPRESSION: Good alignment healing distal tib fib fractures status post ORIF Dictated by: Michael Rao MD 12/06/2020 15:54 Michael Rao MD in [place] 12/06/2020 15:54
== END ==
PROVIDERS: PCP Pediatrics; Visit Provider Orthopaedic Surgery
DX: S82.202D Unspecified fracture of shaft of left tibia, subsequent encounter for closed fracture with routine healing (principal); S82.62XA Displaced fracture of lateral malleolus of left fibula, initial encounter for closed fracture; Z09 Encounter for follow-up examination after completed treatment for conditions other than malignant neoplasm
CPT/HCPCS: 73590; 73610

== ENCOUNTER 2020-12-06 13:27 | Outpatient (RCR) | payer BC, SELFPAY | END 2020-12-06 14:29 | disposition home or self-care (01) | LOC: PT 13:27 | PROVIDERS: Visit Provider Orthopaedic Surgery | DX: S82.202D Unspecified fracture of shaft of left tibia, subsequent encounter for closed fracture with routine healing (principal); S82.62XD Displaced fracture of lateral malleolus of left fibula, subsequent encounter for closed fracture with routine healing | CPT/HCPCS: 97760 ==

== ENCOUNTER → 2021-01-17 10:06 | Outpatient (CLI) | payer BC, SELFPAY ==
--- NOTE | 2021-01-17 10:11 | XR_ITS ---
PROCEDURE: XR TIBIA FIBULA LT 2V XR left ankle three views CLINICAL INDICATION: sp ORIF LT ankle/ IM nailing LT tibia sx 10/22/20 COMPARISON: CR XR TIBIA FIBULA LT 2V from 10/21/2020 CR XR TIBIA FIBULA LT 2V from 11/08/2020 CR XR TIBIA FIBULA LT 2V from 12/06/2020 CR XR ANKLE LT MIN 3V from 01/17/2021 FINDINGS: Status post ORIF left tib fib with intramedullary tibial austen and lateral bone plate at the distal fibula. Fracture line at the distal tibia is somewhat less apparent with developing callus formation with good alignment. Distal fibular fracture is in good alignment. Fracture line still visible posteriorly. IMPRESSION: Good alignment status post ORIF distal tib fib with healing fractures and no evidence of orthopedic complication Dictated by: Michael Rao MD 01/17/2021 12:50 Michael Rao MD in [place] 01/17/2021 12:50
== END ==
PROVIDERS: PCP Pediatrics; Visit Provider Orthopaedic Surgery
DX: Z09 Encounter for follow-up examination after completed treatment for conditions other than malignant neoplasm (principal); S82.242D Displaced spiral fracture of shaft of left tibia, subsequent encounter for closed fracture with routine healing; S82.62XD Displaced fracture of lateral malleolus of left fibula, subsequent encounter for closed fracture with routine healing
CPT/HCPCS: 73590; 73610

== ENCOUNTER 2021-02-02 08:00 | Outpatient (RCR) | payer BC, SELFPAY ==
--- NOTE | 2020-12-12 09:18 | HMH.PTOPEV ---
PT Outpatient Evaluation Rehab PT Outpatient Evaluation Start: 12/12/20 08:12 Freq: Status: Active Protocol: Document 12/12/20 08:44 RIK (Rec: 12/12/20 09:17 [email or web address] [id number]) Electronically Signed By Ady Stevens, PT 12/12/20 08:44 Outpatient Therapy Subjective History Subjective History Patient is a 60 year old female presenting to outpatient PT with reports of L foot/ankle/knee pain/ stiffness S/P ORIF for tib/fib and posterior malleolus fracture. Tibal IM austen placed. Sx 10/22 (7w 2d S/P). Intial injury occurred after a slip and fall at home. Most recent imaging indicates good alignment and healing at fracture site. Patient is currently WBAT per patient report. Patient has progressed to ambulation with axillary crutches. Comorbidities include hx of HTN, hypothyroidism, pre- diabetes, HL and cholecystectomy. Chief Complaint Pain,Stiff,Swelling Symptom Type Ache Symptoms Relieved By Rest/Positioning,Ice, Prescription Meds,Elevation Symptoms Aggravated By Standing,Physical Activity, Walking Prior Functional Limitations None Current Functional Limitations Housework,Sleeping,Standing, Squatting,Recreation Activity, Walking,Stairs,Balance,Bending /Stooping Symptom Description Intermittent Level of pain today (0-10) 0 Pain scale - at its best (0-10) 0 Pain scale - at its worst (0-10) 4 Ankle/Foot Eval Gait Observation General Gait Pattern Observation Antalgic Gait,Decrease Weight Bear (L) Assistive Device Ambulation Assistive Device Rolling Walker,Axillary Crutches Palpation Tenderness left Ankle/Foot Palpation Findings Tenderness Ankle/Foot Palpation Overall Comment L lateral malleolus/peroneal mm 2/4 ROM Ankle/Foot Dorsiflexion w/Knee Extended -20 Active Range Motion (degrees) Ankle/Foot Dorsiflexion w/Knee Extended -11 Passive Range (degrees) Ankle/Foot Plantar Flexion Active Range 50 of Motion (degrees) Ankle/Foot Plantar Flexion Passive Range 55
--- NOTE | 2021-01-09 09:03 | HMH.RHREAS ---
Rehab Reassessment Rehab OP Re-assessment Start: 01/09/21 08:08 Freq: Status: Active Protocol: Document 01/09/21 08:55 RIK (Rec: 01/09/21 09:03 RIK [id number]) Electronically Signed By Ady Stevens, PT 01/09/21 08:55 Rehab Re-assessment Subjective Subjective Patient reports 50% improvement since start of care. Objective Objective Notes AROM: DF -2; PF 38; INV 20; EV 10 PROM: DF 3; PF 45; INV 26; EV 20 MMT: DF 4-/5; PF 4+/5; INV/EV 4-/5 Pain: today 1/10; 2/10 at worst Neuro WNL Special test: - Assessment Progress Assessment Progressing as Expected Assessment Notes Patient is progressing well with Rx. She initially presented to PT in wheel chair non-ambulatory. She has progressed to ambulation with SPC. Orthotic fitting for lace up corsett ankle brace today. Patient instructed to ween into brace with community ambulation. Rx has consisted mainly of ther-ex to improve mobility, neuro reeducation for balance, aggressive manual stretching and modalities prn for pain/inflammation. Persistent functional limitations with all standing/ ambulatory activities. Patient goals met STG's Goals Not Met LTG's Revised Goals NA Plan Plan Continue with current POC. Frequency of Therapy 2x/week Duration of therapy 4 weeks Time and Billing Re-Eval Time 15 Re-Eval Billing Units 1 PHYSICIAN CERTIFICATION: I certify the specified therapy services for Trini Laird are required, authorized, and reviewed every 30 days.
== END 2021-02-02 08:05 | disposition home or self-care (01) ==
LOC: PT 08:00
PROVIDERS: PCP Pediatrics; Visit Provider Orthopaedic Surgery
DX: S82.202D Unspecified fracture of shaft of left tibia, subsequent encounter for closed fracture with routine healing (principal); S82.62XD Displaced fracture of lateral malleolus of left fibula, subsequent encounter for closed fracture with routine healing
CPT/HCPCS: 97010; 97014; 97110; 97112; 97116; 97140; 97163; 97164; 97760; G0283

== ENCOUNTER → 2021-04-18 10:17 | Outpatient (CLI) | payer BC, SELFPAY ==
--- NOTE | 2021-04-18 10:23 | XR_ITS ---
PROCEDURE: XR TIBIA FIBULA LT 2V Left ankle two views CLINICAL INDICATION: sp ORIF ankle/ IMN nailing tibia, sx 10/22/20 Follow-up surgery COMPARISON: CR XR TIBIA FIBULA LT 2V from 10/21/2020 CR XR TIBIA FIBULA LT 2V from 11/08/2020 CR XR TIBIA FIBULA LT 2V from 12/06/2020 CR XR TIBIA FIBULA LT 2V from 01/17/2021 CR XR ANKLE LT MIN 3V from 04/18/2021 FINDINGS: Status post ORIF distal tib fib. Long intramedullary austen is present throughout length of the tibia with proximal and distal screw supporting cortical screws. Bone plate is present at the distal fibula laterally. There is good alignment. Callus formation noted at the tibial fracture. Fracture line is barely visible. Good alignment of the fibular fracture. The fracture line is not apparent. The ankle mortise is preserved. No evidence of hardware malfunction. The joint spaces are well-preserved. No significant degenerative/arthritic changes. No erosive changes evident. Other findings:None. IMPRESSION: Status post ORIF distal tib fib with good alignment Dictated by: Michael Rao MD 04/18/2021 11:26 Michael Rao MD in [place] 04/18/2021 11:26
== END ==
PROVIDERS: PCP Pediatrics; Visit Provider Orthopaedic Surgery
DX: Z09 Encounter for follow-up examination after completed treatment for conditions other than malignant neoplasm (principal)
CPT/HCPCS: 73590; 73610

== ENCOUNTER → 2021-12-31 16:51 | Outpatient (CLI) | payer BC, SELFPAY ==
[2021-12-31 17:30] LABS: Microscopic, Urine URINE MICROSCOPIC (MICROSCOPIC)
[2021-12-31 18:28] LABS: Basophils # 0.1 K/mm3 (0-0.2); Eosinophils # 0.4 K/mm3 (0.0-0.4); Eosinophils % 6.9 % (0.1-12.0); Hematocrit 41.4 % (37.0-47.0); Hemoglobin 13.9 g/dL (12.2-16.2); Lymphocytes # 1.7 K/mm3 (0.7-4.5); Lymphocytes % 26.3 % (10-50); Mean Corpuscular HGB Conc 33.5 g/dL (31.8-35.4); Mean Corpuscular Hemoglobin 29.2 pg (27.0-31.2); Mean Platelet Volume 9.5 fl (7.4-10.4); Monocytes # 0.4 K/mm3 (0.1-1.0); Neutrophils # 3.8 K/mm3 (1.8-7.8); Neutrophils % 58.7 % (37.0-80.0); Platelet Count 244 K/mm3 (142-424); Red Blood Count 4.76 M/mm3 (4.20-5.40); Red Cell Distribution Width 13.7 % (11.5-17.5); White Blood Count 6.4 K/mm3 (4.8-10.8)
[2021-12-31 18:33] LABS: Albumin Level 3.9 g/dl (3.5-5.0); Anion Gap 12.5 mEq/L (5-15); Blood Urea Nitrogen 28 mg/dl (7-17); Calcium 8.9 mg/dl (8.4-10.2); Carbon Dioxide 24 mmol/L (22.0-30.0); Chloride 108 mmol/L (98-107); Estimated Glomerular Filt Rate 38 ml/min (>60); GFR (African American) 46 ML/MIN (>60); Glucose 150 mg/dl (74-100); Potassium 4.5 mmoL/L (3.5-5.1); Sodium 140 mmol/L (136-145)
[2021-12-31 18:51] LABS: Appearance,Urine CLEAR (Clear); Bilirubin,Urine Negative (Negative); Blood, Urine Negative (Negative); Color,Urine YELLOW (Yellow); Glucose,Urine (UA) Negative (Negative); Ketones,Urine Negative (Negative); Leukocyte Esterase,Urine Negative (Negative); Nitrate,Urine Negative (Negative); Protein,Urine 2+ (Negative); Specific Gravity, Urine 1.025 (1.005-1.030); Urobilinogen,Urine 0.2 EU/dl (0.2)
[2021-12-31 18:59] LABS: WBC,Urine Occasional #/hpf (0-3)
[2021-12-31 19:00] LABS: Bacteria,Urine Trace /lpf; Squamous Epithelial Cell,Urine Occasional #/hpf (0-5)
[2021-12-31 19:20] LABS: Creatinine,Urine Random 74 mg/dL (Not Estab.)
[2022-01-02 16:14] LABS: Cytoplasmic (C-ANCA) <1:20 titer (Neg:<1:20); Perinuclear (P-ANCA) <1:20 titer (Neg:<1:20)
[2022-01-03 16:39] LABS: Antiproteinase 3 (PR-3) Abs <3.5 U/mL (0.0-3.5); Myeloperoxidase Antibody <9.0 U/mL (0.0-9.0)
== END ==
PROVIDERS: PCP Pediatrics; Referring Provider Student in an Organized Health Care Education/Training Program; Visit Provider Student in an Organized Health Care Education/Training Program
DX: N28.9 Disorder of kidney and ureter, unspecified (principal)
CPT/HCPCS: 36415; 80069; 81001; 82043; 82570; 83520; 85025; 86256

== ENCOUNTER → 2022-04-23 13:27 | Outpatient (CLI) | payer BC, SELFPAY ==
[2022-04-23 13:34] LABS: Microscopic, Urine URINE MICROSCOPIC (MICROSCOPIC)
[2022-04-23 13:59] LABS: Appearance,Urine CLEAR (Clear); Bilirubin,Urine Negative (Negative); Blood, Urine TRACE-I (Negative); Color,Urine YELLOW (Yellow); Glucose,Urine (UA) Negative (Negative); Ketones,Urine Negative (Negative); Leukocyte Esterase,Urine Negative (Negative); Nitrate,Urine Negative (Negative); Protein,Urine 2+ (Negative); Urobilinogen,Urine 0.2 EU/dl (0.2)
[2022-04-23 14:02] LABS: Basophils # 0.1 K/mm3 (0-0.2); Eosinophils # 0.3 K/mm3 (0.0-0.4); Eosinophils % 4.2 % (0.1-12.0); Hematocrit 43.6 % (37.0-47.0); Hemoglobin 13.7 g/dL (12.2-16.2); Lymphocytes # 1.9 K/mm3 (0.7-4.5); Mean Corpuscular HGB Conc 31.4 g/dL (31.8-35.4); Mean Corpuscular Hemoglobin 28.8 pg (27.0-31.2); Mean Corpuscular Volume 91.6 fl (81-99); Mean Platelet Volume 8.5 fl (7.4-10.4); Monocytes # 0.5 K/mm3 (0.1-1.0); Monocytes % 6.3 % (1.7-9.3); Neutrophils # 4.9 K/mm3 (1.8-7.8); Neutrophils % 63.5 % (37.0-80.0); Platelet Count 234 K/mm3 (142-424); Red Blood Count 4.76 M/mm3 (4.20-5.40); Red Cell Distribution Width 13.8 % (11.5-17.5); White Blood Count 7.8 K/mm3 (4.8-10.8)
[2022-04-23 14:18] LABS: Bacteria,Urine Trace /lpf; Squamous Epithelial Cell,Urine Occasional #/hpf (0-5)
[2022-04-23 14:22] LABS: Creatinine,Urine Random 73 mg/dL (Not Estab.)
[2022-04-23 14:47] LABS: Phosphorous 4.1 mg/dl (2.5-4.5)
[2022-04-23 15:01] LABS: Free T4 (Free Thyroxine) 1.12 ng/dl (0.78-2.19)
[2022-04-23 15:14] LABS: Thyroid Stimulating Hormone 1.71 uIU/mL (0.465-4.68)
[2022-04-23 20:14] LABS: Alanine Aminotransferase 35 U/L (12-78); Albumin/Globulin Ratio 1.3 (1.1-1.8); Alkaline Phosphatase 165 U/L (38-126); Anion Gap 13.7 mEq/L (5-15); Aspartate Amino Transferase 44 U/L (14-36); Calcium 9.3 mg/dl (8.4-10.2); Carbon Dioxide 18 mmol/L (22.0-30.0); Chloride 112 mmol/L (98-107); Chol/HDL Ratio 4.3 (1-3.5); Cholesterol 172 mg/dl (140-200); Globulin 3.1 g/dL (1.3-3.2); Glucose 173 mg/dl (74-100); HDL Cholesterol 40 mg/dl (40-60); Potassium 4.7 mmoL/L (3.5-5.1); Sodium 139 mmol/L (136-145); Total Protein,Serum 7.1 g/dl (6.3-8.2)
[2022-04-23 20:35] LABS: Bilirubin,Total < 0.1 mg/dl (0.2-1.3); Triglycerides 502 mg/dl (30-150)
[2022-04-23 21:52] LABS: Blood Urea Nitrogen 32 mg/dl (7-17); Estimated Glomerular Filt Rate 38 ml/min (>60); GFR (African American) 46 ML/MIN (>60)
[2022-04-26 08:20] LABS: Direct LDL Cholesterol 47 mg/dL (100-129)
== END ==
PROVIDERS: PCP Pediatrics; Visit Provider Student in an Organized Health Care Education/Training Program
DX: E03.9 Hypothyroidism, unspecified (principal); E78.5 Hyperlipidemia, unspecified; N18.9 Chronic kidney disease, unspecified; R79.89 Other specified abnormal findings of blood chemistry; R80.9 Proteinuria, unspecified
CPT/HCPCS: 36415; 80053; 80061; 81001; 82570; 84100; 84155; 84439; 84443; 85025

== ENCOUNTER 2023-02-17 13:33 | Emergency (ER) | payer BC, SELFPAY ==
[2023-02-17 13:40] VITALS: BP 110/72; PULSE 87; RESP 20; TEMP 36.5; O2SAT 97; BMI 29.8
--- NOTE | 2023-02-17 14:08 | EXP.UTC ---
Discharge Plan Disposition Patient Disposition: Home, Self-Care Condition: Good Prescriptions Prescriptions: No Action hydrocodone-acetaminophen 5-325 mg tablet 1 tab PO Q4-6H PRN (Reason: pain) Qty: 60 0RF estradiol 1 MG tablet 1 mg PO DAILY Rx Instructions: DAILY FOR 3 WEEKS THEN STOP FOR 1 WEEK. triamterene-hydrochlorothiazid 1 EACH tablet 1 tab PO DAILY cetirizine 10 MG tablet 10 mg PO DAILY simvastatin 40 MG tablet 40 mg PO HS meloxicam 7.5 MG tablet 7.5 mg pe PO DAILY omeprazole 20 MG tablet,delayed release (DR/EC) 20 mg PO DAILY levothyroxine 175 MCG capsule 175 mcg PO DAILY aspirin 81 MG tablet,delayed release (DR/EC) 81 mg PO DAILY vit D3-vit [id number] 1 EACH tablet 1 tab PO DAILY metoprolol succinate 100 MG tablet extended release 24 hr 100 mg PO DAILY losartan 50 MG tablet 50 mg PO DAILY oxycodone-acetaminophen 1 EACH tablet 1 each PO Q4HP PRN (Reason: Moderate To Severe Pain) Qty: 60 0RF docusate sodium 100 MG capsule 100 mg PO BIDP PRN (Reason: Constipation) Qty: 20 0RF Referrals Follow up/Referrals: Viet Wolfe [Primary Care Provider] - See instructions Activity Restrictions/Add. Instructions Additional Instructions/Restrictions: Make sure that you are eating a healthy diet Make sure that you are drinking fluids to help keep you hydrated Take it easy for the next few days Follow up with your Family Doctor if no improvement or any worsening of symptoms Clinical Impressions Clinical Impression: Viral syndrome Instructions Patient Instructions: DI for Viral Syndrome Discharge ED Provider: Elinor Giron [facility] [place] HPI General Stated complaint: Possible reaction to medicine, dizzy, weakness Mode of Arrival: Ambulatory Source of Information: Patient Limitations: No Limitations Time Seen by Provider: 02/17/23 14:08 Description of Symptoms (Recalled from Triage Doc. by RN): PATIENT C/O WEAKNESS, LETHARGY, AND OCCASIONAL LIGHT-HEADEDNESS. SHE STATES SHE TESTED POSITIVE AT HOME FOR COVID LAST FRIDAY AND WAS PRESCRIBED PAXLOVID BY HER PCP. SHE STATES HER SYMPTOMS STARTED AFTER SHE STARTED THE PAXLOVID. SHE REPORTS A NEGATIVE AT HOME COVID TEST THIS AM HEENT Symptoms (Recalled from RN notes): No Resp Symptoms (Recalled from RN notes): No Skin Symptoms (Recalled from RN notes): No MS Symptoms (Recalled from RN notes): No Functional Status (Recalled from RN notes): WNL History of Present Illness Provider Complaint: Patient states that she tested positive last week after coming home from [place] for COVID and she called her doctor and they started her on Paxlovid States that she had fever for several day and that is all better now but she thinks the paxlovid may be making her sick States that this morning she tested negative for COVID but she was still having cough and fatigue States that she was worried she may be having a reaction to the medication or something so she didnt take the dose this morning and came in to get checked States yesterday she felt a little dizzy but not today Related Data Home Medications Medication Instructions Recorded Confirmed aspirin 81 mg tablet,delayed 81 mg PO DAILY Diet supplement 10/21/20 04/18/21 release cetirizine 10 mg tablet 10 mg PO DAILY Allergy symptoms 10/21/20 04/18/21 estradiol 1 mg tablet 1 mg PO DAILY Supplement 10/21/20 04/18/21 levothyroxine 175 mcg capsule 175 mcg PO DAILY Supplement 10/21/20 04/18/21 meloxicam 7.5 mg tablet 7.5 mg pe PO DAILY Arthritis 10/21/20 04/18/21 omeprazole 20 mg tablet,delayed 20 mg PO DAILY GERD 10/21/20 04/18/21 release simvastatin 40 mg tablet 40 mg PO HS Cholesterol 10/21/20 04/18/21 triamterene 37.5 1 tab PO DAILY Fluid 10/21/20 04/18/21 mg-hydrochlorothiazide 25 mg tablet vitamin D3 500 unit-vit K 500 1 tab PO DAILY Supplement 10/21/20 04/18/21 mcg-berberine 90 mg-hops 370 mg tablet losartan 50 mg tablet
[2023-02-17 14:40] VITALS: BP 110/72; PULSE 87; RESP 20; TEMP 36.5; O2SAT 97
== END 2023-02-17 14:42 | disposition home or self-care (01) ==
PROVIDERS: Emergency Provider Nurse Practitioner; PCP Pediatrics
DX: B34.9 Viral infection, unspecified (principal); R05.9 Cough, unspecified; R53.83 Other fatigue; I10 Essential (primary) hypertension; E78.5 Hyperlipidemia, unspecified; E03.9 Hypothyroidism, unspecified
CPT/HCPCS: 99203; 99212; G0463